=== PATIENT | female | born 1970 | race Caucasian/White ===

== ENCOUNTER 2016-12-25 05:28 | Day surgery (SDC) | payer OTHER ==
[~2016-12-25] VITALS: Ht 157.5 cm; Wt 108.9 kg
[2016-12-25] VITALS (9 sets, daily range): BP systolic 117–149; BP diastolic 58–81; PULSE 65–98; RESP 14–20; O2SAT 92–100
[~2016-12-25 05:28] MED LIST: ALBU8.5H2 INHALATION; BECL8.7A6 INHALATION; FLUO20CA25 PO; Lactated Ringer's 1,000 ML IV ONE
[2016-12-25] MEDS ORDERED: fentaNYL-PF 50 mCg/mL 2 mL Inj ONE (05:29)
[2016-12-25] MEDS ORDERED: Ketamine 10 mg/mL 20 mL Inj ONE (05:29)
[2016-12-25] MEDS ORDERED: Ondansetron 2 mg/mL 2 mL Inj ONE (05:29)
[2016-12-25] MEDS ORDERED: Dexamethasone 4 mg/mL Inj ONE (05:29)
[2016-12-25] MEDS ORDERED: Propofol 10,000 mCg/mL 20 mL Inj ONE (05:29)
[2016-12-25] MEDS ORDERED: DEXTROSE 5% IV ONE (06:00)
[2016-12-25] MEDS ORDERED: Lactated Ringer's 1,000 ML IV ONE (06:00)
[2016-12-25] MEDS ORDERED: PHA MIX IV ONE (06:00)
[2016-12-25] MEDS ORDERED: DEXAMETHASONE IV ONE (06:00)
[2016-12-25] MEDS ORDERED: Phenylephrine 10,000 mCg/mL Inj IVPUSH PRN (07:25)
[2016-12-25] MEDS ORDERED: EPHEDrine Sulfate 50 mg/mL Inj IVPUSH PRN (07:25)
[2016-12-25] MEDS ORDERED: MetoCLOpramide 5 mg/mL 2 mL Inj IVPUSH PRN (07:25)
[2016-12-25] MEDS ORDERED: Ondansetron 2 mg/mL 2 mL Inj IVPUSH PRN (07:25)
[2016-12-25] MEDS ORDERED: HYDROmorphone 1 mg/mL Inj IVPUSH PRN (07:25)
[2016-12-25] MEDS ORDERED: fentaNYL-PF 50 mCg/mL 2 mL Inj IVPUSH PRN (07:25)
[2016-12-25] MEDS ORDERED: Dexamethasone 4 mg/mL Inj IVPUSH PRN (07:25)
[2016-12-25] MEDS ORDERED: Lactated Ringer's 500 ML IV PRN (07:25)
--- NOTE | 2016-12-25 07:25 | PCM.HPANE ---
Patient Data Surgeon Admitting Provider: Attending Provider:Wesly Knox MD Primary Care Physician:Solo Abel PA-C Other Provider:Sandra Shethingham Anesthesia Reason for Visit Hearing Loss, Cholesteatoma Of Mastoid Ht/WT & BMI Height (Feet): 5 Height (Inches): 2.00 Weight (Kilograms): 108.860 Body Mass Index 44.00 Allergies Coded Allergies: clindamycin (Verified Allergy, Intermediate, Rash,Itching,, 01/31/15) latex (Verified Allergy, Unknown, rash, 12/20/16) pt states she has not had any problems with this "for a while" Past Anesthesia History Anesthesia History: Denies:: Abnormal Airway, Anesthesia Reactions (difficult to rouse after gallbladder ), Difficult Intubation, Fam Anesthesia Reaction, Fam Malignant Hypertherm, Malignant Hyperthermia Diabetes History Hx Diabetes?: No MRSA MRSA: No Medications Hypertension Medication: No Home Meds Incl Beta Marlon: No Reported Medications Fluoxetine 20 Mg [id number] Mg PO DAILY Ref 0 12/20/16 Beclomethasone Dipropionate (Qvar)8.7 Gm Aer.w.adap1 Puff INHALATION BID #8.7 GM 12/20/16 Albuterol HFA (Proair HFA)8.5 Gm Hfa.aer.ad2 Puffs INHALATION Q4H PRN For Shortness of Breath #1 INHALER 12/20/16 History History of ENT Problems?: Yes HEENT History: Positive for:: Hearing Problem (cholesteatoma right current admission problem) Denies:: Abnormal Airway Cataracts Difficult Intubation Dysphagia Glaucoma Sinus Problem Denture Type: None Teeth Condition: Within Normal Limits Hx of Heart Problems?: No Cardiovascular History: Denies:: AICD Abdominal Aortic Aneurism Atrial Fibrillation Cardiac Surgery Chest Pain Congestive Heart Failure Coronary Artery Disease Edema Heart Murmur Hypertension Irregular Heartbeat Pacemaker Peripheral Vascular Hx of Respiratory Problem?: Yes Respiratory History: Positive for:: Asthma COPD Emphysema Use of Inhalers / NEBS Denies:: Oxygen Administration Pneumonia Tuberculosis Use of C-PAP Machine Hx Neurologic Problems?: No Neurological History: Denies:: CVA Dementia Dizziness Headaches Multiple Sclerosis Parkinson's Disease Seizures TIA Hx of GI Problems?: Yes Hx of Problems?: No Genitourinary History: Denies:: Kidney Stones Urinary Tract Infection Female Hx: Denies:: Problems with Breasts? (hx of benign lumps- no surgery) Skin History: Denies:: History Skin Disorders? Pressure Ulcers Hx Musculoskeletal Problems?: Yes Musculoskeletal History: Positive for:: Fibromyalgia Osteoarthritis (hands) Denies:: Back Injury Degenerative Joint Joint Replacement Musculoskeletal Trauma Myasthenia Gravis Rheumatoid Arthritis Hx of Psycho/Social Problems?: Yes Psycho Social History: Positive for:: Hx Depression Denies:: Anxiety Hx Surgeries?: Yes (shannon., eardrum, tubal ) Hx Any Other Health Problems?: Yes Other History: Denies:: Cancer Thyroid Disease History Blood Transfusions: Positive for:: Accept Blood Products? Denies:: Blood Transfusions Hx Diabetes: No Hx Alcohol Use: YesAlcoholic Drinks Per Day: rareHx Substance Use: No Smoking Status: Unknown if Ever Smoker Have You Smoked inLast 12 mo: No Stop/Bang Treated for Sleep Apnea?: No Do You Have a CPAP Machine?: No P-Blood Pressure: treated: No B- Body Mass Index > 35 kg/m2: Yes A- Age over 50: No N- Neck Large Circumference: Yes G- Gender Male: No STEVENSON Risk Assessment: Low Risk, <3 Yes Risk Assessment Category Category 1A: Patient has history of documented sleep apnea, and HAS NOT received any narcotic, sedative or anesthesia administration during this stay. Category 1B: Patient has history of documented sleep apnea, and HAS received any narcotic , sedative or anesthesia administration during this stay Category 2: Patient has SUSPECTED Obstructive Sleep Apnea, and HAS received any narcotic , sedative or anesthesia administration during this stay. Category 3: Patient has SUSPECTED Obstructive Sleep Apnea and HAS NOT received narcotic, sedative or anesthesia administration during this stay. Category 4: Outpatient in Procedural Areas with known sleep apnea or who screen positive for High Risk via the STOP/BANG questionnaire. Exam Exam Vital Signs Vital Signs Date Time Temp Pulse Resp B/P Pulse Ox O2 Delivery O2 Flow Rate FiO2 12/25/16 06:01 36.5 65 17 141/81 98 Room Air General Appearance: Alert, Oriented X3, Cooperative, No Acute Distress HEENT/AIRWAY: MP 2 Lungs: Clear to Auscultation, Normal Air Movement Heart: Exam Unremarkable, Regular Rate/Rhythm, No Murmurs/Rubs/Gallops Meds/Labs/Diagnostics Admission Meds Current Medications Lactated Ringer's (Lr) 1,000 ml @ ud STK-MED ONCE IV Last administered on t 06:00; Start 12/25/16 at 06:00; Stop 12/25/16 at 06:01; Status DC Plan Impression Patient chart reviewed, patient interviewed and anesthestic plan with risks, benefits, and alternatives discussed, and informed consent obtained. ASA Physical Status: ASA3 Severe Disease (BMI 44) Anesthetic Plan: GA Bene/Risks/Altern/Consents: Yes HP Complete Prior to Induction: Yes Rudolph Whitten MD Dec 25, 2016 07:25
[2016-12-25] MEDS ORDERED: Lidocaine 2%-Epi 1:100,000 20 mL Inj INFILTRATE ONE (07:59)
[2016-12-25] MEDS ORDERED: Ciprofloxacin-Dexamethasone 7.5 mL Otic Susp RIGHT_EAR ONE (07:59)
[2016-12-25] MEDS ORDERED: hydrOXYzine Inj 50 MG/1 mL SDV IM ONE (09:15)
[2016-12-25] MEDS ORDERED: EPHEDrine Sulfate 50 mg/mL Inj IM ONE (09:15)
[2016-12-25] MEDS: Lactated Ringer's 1,000 ML IV SCH ×2 (09:36→09:47)
--- NOTE | 2016-12-25 09:55 | PCM.ANEP1 ---
Post Anesthesia PACU Phase 1 Assessment Vital Signs Vital Signs Date Time Temp Pulse Resp B/P Pulse Ox O2 Delivery O2 Flow Rate FiO2 12/25/16 09:40 36.6 90 16 136/73 96 Nasal Cannula 3 12/25/16 09:30 36.8 82 18 129/65 95 Nasal Cannula 3 12/25/16 09:20 86 14 117/58 93 Nasal Cannula 3 12/25/16 09:15 98 16 122/60 93 Nasal Cannula 3 12/25/16 09:10 96 17 135/65 94 Nasal Cannula 3 12/25/16 09:05 98 20 135/68 92 Room Air 12/25/16 09:00 36.4 97 20 149/77 100 Simple Mask 8 12/25/16 06:01 36.5 65 17 141/81 98 Room Air Anesthetic Administered: GA Level of Alertness: Awake, talking MAXWELL's with Equal Strength: Yes Pain: Yes Pain Scale Score: 4 Nausea or Vomiting: Yes (mild; ephedrine and vistaril given) CV Function & Hydration Stable: Yes Airway Device: none Oxygen Delivery: Simple Mask Lungs: Clear to Auscultation, Normal Air Movement Dermatome Level: Full Sensation PACU Phase 2 Assessment Complications: No Follow up Care: No Patient Instructions Provided: N/A Rudolph Whitten MD Dec 25, 2016 09:55
[2016-12-25] MEDS ORDERED: Promethazine Inj 12.5 MG in Dextrose 5%-Pha MIX 50 ML IV ONE (10:05)
--- NOTE | 2016-12-25 18:43 | OP ---
[address] [address] OPERATIVE REPORT PATIENT: JESUSITA BELL : 1970 MR#: [id number] ADMIT: 12/25/2016 JOB ID: [id number] DATE OF SURGERY: 12/25/2016 SURGEON: Wesly Knox MD PREOPERATIVE DIAGNOSIS(ES): Right ear cholesteatoma. POSTOPERATIVE DIAGNOSIS(ES): Right ear cholesteatoma. PROCEDURE: 1. Right tympanomastoidectomy with temporalis fascial and ady cartilage graft. 2. Total ossicular replacement prosthesis (TORP) ossicular reconstruction. HISTORY: The patient is a 46-year-old, with progressive deteriorating hearing in right ear noted to have a cholesteatoma posteriorly with no visible residual ossicles. PROCEDURE AND FINDINGS: The patient in the operative room, placed on the operating table. LMA anesthesia induced. The right periauricular area was prepped and draped in sterile fashion. Under the operating microscope, the ear canal was injected with 2% lidocaine 100,000 epinephrine as is the postauricular area. Again, under the operating microscope, the posterior half of the tympanic membrane is totally atelectatic with cholesteatomas down onto the promontory and into the round window niche. There is no visible ossicular remnant. With the roller knife, superior and inferior canal incisions were performed. The canal skin was elevated. The fibrous annulus was elevated from the bony annulus. Care was taken to protect the chorda tympani nerve. The dissection continues anteriorly, peeling the cholesteatoma matrix out of the facial recess, off of the promontory, out of the round window niche. The stapes is absent. The foot plate is intact and appears to be mobile. There is a small incus remnant not associated with the cholesteatoma. It is articulating with the malleus. The postauricular incision was then made with a 15 blade and carried down to and through the periosteum. Mastoid cortex is exposed. A temporalis fascial graft is harvested as well as a chondral cartilage graft. With self-retaining retractors placed, starting with a large cutting bur, a mastoidectomy is performed. There is very little pneumatization lateral to Julio Cesar's septum. The air cells are anteromedial to the septum. Findings of granular tissue. This was carefully debrided with progressively smaller cutting burs until the short process of the incus was identified in the incudal fossa. Once the aaron at antrum is adequately opened, this portion of the procedure was terminated. The periosteum, subcutaneous and muscular tissues were closed with interrupted buried 4-0 chromic and skin with Dermabond. Then, back through the middle ear Ciprodex-soaked Gel-Foam was placed under the anterior and inferior portion of the tympanic membrane. The temporalis fascial graft is trimmed and placed as a medial lay graft. The portion of conchal cartilage is placed in the posterior-superior quadrant medial to the temporalis graft. A 5.5 mm titanium TORP is then selected and placed with the foot portion on the stapes footplate. The tympanomeatal flap, newly constructed tympanic membrane and cartilage graft are then rotated posteriorly into position such that the cartilage rests on the head of the TORP. A [place] dressing with Anam silk and cotton is applied. The lateral canal is filled with antibiotic ointment and an eye pad dressing is applied. The patient is awakened in the operative room, returned to recovery room where facial nerve function is noted to be normal.
--- NOTE | 2016-12-27 16:19 | PATH ---
SURGICAL PATHOLOGY Attending Physician:Wesly Knox M.D. CASE STATUS: Signed Out PATIENT NAME: JESUSITA BELL PID: [id number] : 1970 DATE COLLECTED:12/25/2016 21:34 SPECIMEN: Cholesteatoma CLINICAL HISTORY: RIGHT CHOLESTEATOMA, HEARING LOSS 1). RIGHT MIDDLE EAR CHOLESTEATOMA FINAL DIAGNOSIS: Right Middle Ear Cholesteatoma, Biopsy: Histologic features consistent with cholesteatoma, in the appropriate clinical context. ICD10: H71.01 GROSS DESCRIPTION: Received in formalin, labeled with the patient's name and "right middle ear cholesteatoma" is one fragment of perez tissue measuring 0.3 x 0.1 x 0.1 cm. The fragment is totally submitted in one cassette. ([id number]) ICD-9 CODES: CPT CODES: 1: 92383 Electronically Signed Out Dolores Salas MD [facility] Pathology [facility] [address], [place] [address] Technical component performed at [facility], [facility] [address], [place], [address]
== END 2016-12-25 23:59 | disposition home or self-care (01) ==
LOC: SAS 05:28
PROVIDERS: ATTEND Otolaryngology Facial Plastic Surgery
DX: H71.21 Cholesteatoma of mastoid, right ear (principal); H90.71 Mixed conductive and sensorineural hearing loss, unilateral, right ear, with unrestricted hearing on the contralateral side; J44.9 Chronic obstructive pulmonary disease, unspecified; J45.909 Unspecified asthma, uncomplicated; M79.7 Fibromyalgia; F32.9 Major depressive disorder, single episode, unspecified; R42 Dizziness and giddiness; Z79.51 Long term (current) use of inhaled steroids
CPT/HCPCS: 21235; 69637; J1100; J2405; J2550; J2765; J3010; J3410; J7120